=== PATIENT | female | born 1990 | race American Indian/Alaskan Native ===

== ENCOUNTER 2019-02-16 17:51 | Outpatient (CLI) | payer MEDICAID ==
[2019-02-16] MEDS ORDERED: LACTATED RINGERS 1,000 ML IV ONE (18:50)
[2019-02-16 22:37] VITALS: BP 125/89
== END 2019-02-16 22:00 | disposition home or self-care (01) ==
LOC: TRG 17:51
PROVIDERS: ATTEND Obstetrics & Gynecology
DX: O62.9 Abnormality of forces of labor, unspecified (principal); O26.893 Other specified pregnancy related conditions, third trimester; M54.9 Dorsalgia, unspecified; Z3A.38 38 weeks gestation of pregnancy
CPT/HCPCS: 96360; J7120

== ENCOUNTER 2019-03-03 06:56 | Inpatient (IN) | payer MEDICAID ==
[2019-03-03] MEDS ORDERED: LACTATED RINGERS 1,000 ML ONE (08:46)
[2019-03-03] MEDS ORDERED: PITOCin/NS 30 UNIT/500ML 30 UNITS/500 ML BAG IV SCH (09:00)
[2019-03-03] MEDS ORDERED: AMPICILLIN/NS 2 GM/100 ML 2 GM/100 ML BAG IV ONE (09:00)
[2019-03-03] MEDS ORDERED: BRETHINE IVP PRN (09:06)
[2019-03-03] MEDS ORDERED: XYLOCAINE 2% INFILTRATI ONE (09:06)
[2019-03-03] MEDS ORDERED: MINERAL OIL PO PRN (09:06)
[2019-03-03] MEDS ORDERED: SUBLIMAZE IV PRN (09:06)
[2019-03-03] MEDS ORDERED: ZOFRAN IV PRN ×3 (09:06→18:46)
[2019-03-03] MEDS ORDERED: STADOL IV PRN (09:06)
[2019-03-03] MEDS ORDERED: BRETHINE SUB-Q PRN (09:06)
[2019-03-03] MEDS: LACTATED RINGERS 1,000 ML IV SCH ×2 (09:15→12:24)
[2019-03-03] MEDS ORDERED: PITOCin/NS 20 UNIT/1000ML DRIP 20 UNITS/1,000 ML BAG IV SCH ×3 (10:00→19:00)
[2019-03-03 10:36] LABS: Basophils % (Auto) 0.8 % (0.0-1.8); Eosinophils # (Auto) 0.1 K/mm3 (0.0-0.4); Eosinophils % (Auto) 1.9 % (0.0-4.3); Hematocrit 28.2 % (30.3-42.9); Hemoglobin 9.5 gm/dl (10.1-14.3); Lymphocytes # (Auto) 1.1 K/mm3 (1.2-5.4); Lymphocytes % (Auto) 26.6 % (13.4-35.0); Mean Corpuscular HGB Conc 34 % (30-34); Mean Corpuscular Volume 77 fl (79-97); Monocytes # (Auto) 0.5 K/mm3 (0.0-0.8); Monocytes % (Auto) 12.2 % (0.0-7.3); Platelet Count 246 K/mm3 (140-440); Red Blood Count 3.67 M/mm3 (3.65-5.03)
--- NOTE | 2019-03-03 11:27 | History and Physical Report ---
History of Present Illness Date of examination: 03/03/19 Date of admission: 03/03/19 06:56 Chief complaint: Water broke History of present illness: The patient is a 28 yo at 41.0 wks EGA who presents with SROM (clear) and contractions since 0500 this morning. She has received care with [facility] since 20 weeks EGA. Her has been complicated by sickle cell trait, labor s/p BMZ x2 at 29 wks, and Chlamydia treated and cured. She is GBS negative. Past History Past Medical History: no pertinent history Past Surgical History: no surgical history Family/Genetic History: sickle cell/trait Social history: no significant social history - Obstetrical History Expected Date of Delivery: 02/24/19 Actual Gestation: 41 Week(s) 0 Day(s) : 5 Para: 2 Spontaneous Abortions: 2 Number of Living Children: 2 Medications and Allergies Allergies Allergy/AdvReac Type Severity Reaction Status Date / Time No Known Allergies Allergy Verified 12/12/18 10:38 Home Medications Medication Instructions Recorded Confirmed Last Taken Type Famotidine [Pepcid] 40 mg PO QHS #10 tablet 10/29/18 Unknown Rx Active Meds: Active Medications Butorphanol Tartrate (Stadol) 2 mg IV Q2H PRN PRN Reason: Pain , Severe (7-10) Ephedrine Sulfate (Ephedrine Sulfate) 10 mg IV Q2M PRN PRN Reason: Hypotension Fentanyl (Sublimaze) 100 mcg IV Q2H PRN PRN Reason: Labor Pain Oxytocin/Sodium Chloride (Pitocin/Ns 20 Unit/1000ml Drip) 20 units in 1,000 mls @ 125 mls/hr IV DIRECT GREG Oxytocin/Sodium Chloride (Pitocin/Ns 30 Unit/500ml) 30 units in 500 mls @ 4 mls/hr IV TITR GREG; Protocol Last Admin: 03/03/19 09:24 Dose: 4 ml/hr, 4 mls/hr Documented by: Lactated Ringer's (Lactated Ringers) 1,000 mls @ 125 mls/hr IV DIRECT GREG Last Admin: 03/03/19 09:15 Dose: 125 mls/hr Documented by: Mineral Oil (Mineral Oil) 30 ml PO QHS PRN PRN Reason: Constipation Ondansetron HCl (Zofran) 4 mg IV Q8H PRN PRN Reason: Nausea And Vomiting Terbutaline Sulfate (Brethine) 0.25 mg SUB-Q ONCE PRN PRN Reason: Hyperstimulation/Hypertonicity Terbutaline Sulfate (Brethine) 0.25 mg IVP ONCE PRN PRN Reason: Hyperstimulation/Hypertonicity Review of Systems All systems: negative Cardiovascular: no chest pain, no shortness of breath Neurological: no headaches - Vital Signs Vital signs: Vital Signs Pulse BP 75 136/88 03/03/19 07:24 03/03/19 07:24 Temp Pulse Resp BP Pulse Ox 75 136/88 100 03/03/19 11:19 03/03/19 07:24 03/03/19 11:19 - Physical Exam Cardiovascular: Regular rate, Normal S1, Normal S2, No murmurs Lungs: Positive: Clear to auscultation, Normal air movement Abdomen: Positive: normal appearance Genitourinary (Female): Positive: normal external genitalia, normal perenium Uterus: Positive: normal size, normal contour Extremities: Positive: normal - Obstetrical FHR: auscultation normal, category 1 Uterine Contraction Monitor Mode: External Uterine Contraction Pattern: Regular Uterine Tone Measurement Phase: Contraction Uterine Contraction Intensity: Strong/Firm Results Result Diagrams: 03/03/19 08:11 Abnormal lab results 03/03/19 Range/Units 08:11 WBC 4.3 L (4.5-11.0) K/mm3 Hgb 9.5 L (10.1-14.3) gm/dl Hct 28.2 L (30.3-42.9) % MCV 77 L (79-97) fl MCH 26 L (28-32) pg [place] % (Auto) 12.2 H (0.0-7.3) % Lymph # 1.1 L (1.2-5.4) K/mm3 All other labs normal. Assessment and Plan A: 28 yo at 41.0 wks EGA SROM x5 hours, initially clear contractions Sickle cell trait GBS negative P: Admit to L&D Pitocin augmentation Pain relief as requested Anticipate
[2019-03-03] MEDS ORDERED: MARCAINE 0.25% INFILTRATI ONE (12:50)
--- NOTE | 2019-03-03 13:13 | Anesthesia Consultation ---
Anesthesia Consult and Med Hx Date of service: 03/03/19 - Airway Anesthetic Teeth Evaluation: Good, Partials ROM Head & Neck: Adequate Mental/Hyoid Distance: Adequate Mallampati Class: Class II Intubation Access Assessment: Good - Pulmonary Exam CTA: Yes - Cardiac Exam Cardiac Exam: RRR - Pre-Operative Health Status ASA Pre-Surgery Classification: ASA2, Emergency Proposed Anesthetic Plan: Epidural - Pulmonary Hx Asthma: No COPD: No Hx Pneumonia: No - Cardiovascular System Hx Hypertension: No - Central Nervous System Hx Seizures: No Hx Psychiatric Problems: No - Endocrine Hx Renal Disease: No Hx End Stage Renal Disease: No Hx Hypothyroidism: No Hx Hyperthyroidism: No - Hematic Hx Anemia: No Hx Sickle Cell Disease: No (sickle cell trait) - Other Systems Hx Alcohol Use: No
[2019-03-03] MEDS ORDERED: NARCAN 2 MG/2 ML IV PRN (13:30)
[2019-03-03] MEDS ORDERED: fentaNYL-BUPIV 2 MCG/ML-0.125% 200 MCG/100 ML BAG EPIDURAL SCH (14:00)
[2019-03-03] MEDS ORDERED: NACL 0.9% 1000 ML 1,000 ML ONE (14:30)
[2019-03-03] MEDS ORDERED: PEPCID IV ONE ×2 (14:52→14:59)
[2019-03-03] MEDS ORDERED: BICITRA PO ONE (14:52)
[2019-03-03] MEDS ORDERED: REGLAN IV ONE (14:52)
--- NOTE | 2019-03-03 14:52 | Event Note ---
Date: 03/03/19 Repetitive decels despite amnioinfusion. Cervix 5 cm. Plan to proceed with primary section.
[2019-03-03] MEDS ORDERED: DEXMEDETOMIDINE IV ONE (14:56)
[2019-03-03] MEDS ORDERED: BICITRA ONE (14:59)
[2019-03-03] MEDS ORDERED: REGLAN ONE (14:59)
[2019-03-03] MEDS ORDERED: XYLOCAINE 2%/ EPI 1:200,000 INFILTRATI ONE (15:00)
[2019-03-03] MEDS ORDERED: LACTATED RINGERS 1,000 ML IV SCH (15:00)
--- NOTE | 2019-03-03 15:04 | Event Note ---
Date: 03/03/19 (1410) Decelerations to 50 bpm noted, toco inadequately registering uterine activity. Discussed risks and benefits of IUPC and amnioinfusion, pt elects for placement. IUPC placed in sterile fashion with no bloody flashback noted. Amnioinfusion initiated.
[2019-03-03] MEDS ORDERED: ZOFRAN ONE (15:16)
[2019-03-03] MEDS ORDERED: ANCEF/STERILE WATER 2 GM/20 ML IV ONE (15:20)
[2019-03-03] MEDS ORDERED: WATER FOR IRRIG STERILE IR ONE (15:24)
[2019-03-03] MEDS ORDERED: NACL 0.9% IR ONE (15:24)
[2019-03-03] MEDS ORDERED: METHERGINE IM ONE ×2 (15:42→17:24)
[2019-03-03] MEDS ORDERED: XYLOCAINE MPF 2% ONE (16:00)
[2019-03-03] MEDS ORDERED: TORADOL ONE (16:02)
--- NOTE | 2019-03-03 16:17 | Procedure Note ---
OB Delivery Note - Delivery Date of Delivery: 03/03/19 Surgeon: KERWIN RODRIGUEZ Estimated blood loss: 1000cc - Section Preop diagnosis: nonreassuring FHR tracing Postop diagnosis: same section procedure: section, primary low transverse Disposition: PACU Complications: uterine atony Narrative: Please see operative report. - A at 1 minute: 8 at 5 minutes: 9 Gender: Female (2913g (6lb 7oz) @ 1534 pm)
--- NOTE | 2019-03-03 16:24 | Operative Report ---
Operative Report Operative Report: Date of procedure: March 03, 2019 Preoperative diagnosis: 1) IUP at 41w0d 2) Nonreassuring status remote from delivery 3) SROM Postoperative diagnosis: Same 4) Uterine Atony Procedure:Primary low transverse section Surgeon: Viv Camejo M.D. Anesthesia: Regional Findings: 1) Viable female , Apgars 8 and 9, weight 2913g, (6 lb 7 oz) in cephalic presentation. Tight nuchal cord x 1 2) Normal-appearing uterus ovaries and tubes Estimated blood loss: 1000 mL IV fluids: 700 mL Urine output: 100mL, clear at the end of the procedure Drains: [place] to gravity Specimens: None. Complications: None. Counts correct x 3 Medications: Methergine 0.2 mg IM Disposition: Stable to PACU Indication for procedure: Pt is a 28 year old -[place] female at 41w0d who was initially admitted with rupture of membranes progressed to 5 cm then began to have repetitive variable decels to the 50s with every contraction despite amnioinfusion. The decision was made to proceed with delivery. Operation in detail: After the risks, benefits, alternatives and complications were explained to the patient she gave informed consent for the procedure. She was subsequently taken to the operating room where regional anesthesia was noted to be adequate. She was subsequently placed in the dorsal supine position with leftward tilt and prepped and draped in a normal sterile fashion. heart tones were noted to be in the 125s prior to incision. A timeout was performed. A Pfannenstiel skin incision was made with the knife and carried down to the layer of the fascia with the Bovie. The fascia was incised in the midline and the fascial incision was extended bilaterally with the Bovie. Attention was then turned to the superior aspect of the incision which was grasped with two Kochers, tented up, and dissected off the rectus muscles. Attention was then turned to the inferior aspect of the incision which was grasped with two Kochers, tented up and dissected off the rectus muscles. The rectus muscles were then in the midline. The peritoneum was then entered bluntly. The peritoneal incision was extended with good visualization of the bladder. The peritoneal incision was then stretched. An Nilo self-retaining retractor was placed for visualization. The bladder blade was placed. The vesicouterine peritoneum was grasped with smooth pickups and incised with Metzenbaum scissors. Metzenbaum scissors were used to extend the incision bilaterally. The bladder flap was then created digitally and the bladder blade was replaced. A transverse incision was made in the lower uterine segment with a knife and extended bilaterally with the bandage scissors. The head was delivered without difficulty followed by shoulders and body. was bulb suctioned at delivery. The cord was clamped and cut and the was handed to NICU staff in attendance. The placenta was then delivered manually. The uterus was then exteriorized and cleared of all clots and debris. The uterus was noted to be atonic so Methergine 0.2 mg IM was administered with improvement in uterine tone. There was also a bleeding vessel in the left lower uterine segment that required multiple [id number] of 2-0 Vicryl to achieve hemostasis. The hysterotomy was then reapproximated with 0 Vicryl in a running locked fashion. A figure of eight of the same suture was used to obtain hemostasis. The hysterotomy was inspected and hemostasis was noted. The Nilo self-retaining retractor was removed. The gutters were irrigated and cleared of all clots and debris. The hysterotomy was again inspected and noted to be hemostatic. Surgicel was placed over the hysterotomy. Intercede was placed over the anterior surface of the uterus. The peritoneum was reapproximated with 2-0 Vicryl in a running fashion incorporating the rectus muscles. The fascia was reapproximated with 0 Vicryl in a running fashion. The skin was reapproximated with 4-0 Vicryl in a running fashion. The incision was then covered with steri strips and a pressure dressing. The procedure was then ended. The patient tolerated the procedure well and was taken to the PACU in stable condition. All instrument, lap, and needle counts were correct 3.
[2019-03-03] MEDS ORDERED: PHENERGAN PO PRN (16:57)
[2019-03-03] MEDS ORDERED: DILAUDID IV PRN ×2 (16:57)
[2019-03-03] MEDS ORDERED: PHENERGAN PR PRN (16:57)
[2019-03-03] MEDS ORDERED: NARCAN 0.4 MG/1 ML IV PRN ×2 (16:57→18:46)
--- NOTE | 2019-03-03 16:57 | Anesthesia Day of Surgery ---
Anesthesia Day of Surgery - Day of Surgery Patient Examined: Yes Patient H&P Reviewed: Yes Patient is NPO: Yes
--- NOTE | 2019-03-03 16:59 | Post Anesthesia Evaluation ---
- Post Anesthesia Evaluation Patient Participated: Yes Airway Patent: Yes Stable Respiratory Function: Yes Nausea/Vomiting: No Temp > 96.8F: Yes Pain Manageable: Yes Adequeate Hydration: Yes Anesthesia Complications: No Block Receding Appropriately: Yes Patient on Ventilator: No
[2019-03-03] MEDS ORDERED: SODIUM CHLORIDE FLUSH SYRINGE 10 ML IV NR ×2 (17:00→18:46)
[2019-03-03] MEDS ORDERED: TUCKS PAD TP PRN (18:46)
[2019-03-03] MEDS ORDERED: MORPHINE IV PRN ×2 (18:46)
[2019-03-03] MEDS ORDERED: LANSINOH TP PRN (18:46)
[2019-03-03] MEDS ORDERED: MILK OF MAGNESIA PO PRN (18:46)
[2019-03-03] MEDS: TORADOL IV PRN (21:27)
[2019-03-03] MEDS: D5LR 1,000 ML IV SCH (23:06)
[2019-03-03] MEDS: PERCOCET 5/325 PO PRN (23:06)
[2019-03-03] MEDS: ANCEF/NS 1 GM/50 ML 1 GM/50 ML BAG IV SCH (23:07)
[2019-03-04] MEDS: TORADOL IV PRN (03:14)
[2019-03-04] MEDS: PERCOCET 5/325 PO PRN ×3 (03:20→17:25)
[2019-03-04] MEDS: D5LR 1,000 ML IV SCH (05:11)
[2019-03-04 05:57] LABS: Hemoglobin 6.7 gm/dl (10.1-14.3)
[2019-03-04] MEDS ORDERED: BOOSTRIX IM ONE (06:00)
[2019-03-04] MEDS ORDERED: M-M-R II VACCINE SUB-Q ONE (06:00)
[2019-03-04 06:05] LABS: Hematocrit 20.2 % (30.3-42.9)
[2019-03-04] MEDS: ANCEF/NS 1 GM/50 ML 1 GM/50 ML BAG IV SCH (09:26)
[2019-03-04] MEDS: IBUPROFEN PO PRN ×2 (09:52→17:25)
[2019-03-04] MEDS: MYLICON PO PRN ×2 (09:53→13:15)
[2019-03-04] MEDS ORDERED: FEOSOL PO SCH ×2 (10:00)
--- NOTE | 2019-03-04 10:02 | Progress Note ---
Assessment and Plan A: POD1 s/p primary LTCS Vital signs stable Severe anemia without symptoms No bowel sounds P: Initiate stimulant laxative Iron supplementation TID Order abdominal binder Void JENNA Anticipate d/c to home on POD3 Subjective - Subjective Date of service: 03/04/19 Principal diagnosis: section Interval history: POD1 s/p primary LTCS for NRFHT. Patient reports: appetite normal, pain well controlled, no voiding normally (has not been up to void yet), no flatus [place]: doing well, bottle feeding Objective - Vital Signs Latest vital signs: Vital Signs Temp Pulse Resp BP BP Pulse Ox 03/04/19 07:35 97.7 F 81 20 112/63 100 03/04/19 03:54 98.3 F 90 20 110/72 99 03/03/19 23:46 97.9 F 86 20 113/72 100 03/03/19 17:45 97.5 F L 62 18 122/82 100 03/03/19 17:25 97.5 F L 77 18 114/66 03/03/19 17:10 57 L 12 120/73 100 03/03/19 16:55 56 L 14 112/68 100 03/03/19 16:40 59 L 14 115/64 98 03/03/19 16:35 61 15 114/65 98 03/03/19 16:30 61 18 111/63 99 03/03/19 16:25 97.5 F L 67 16 98/59 100 03/03/19 14:54 96 H 84 03/03/19 14:53 91 H 71 L 03/03/19 14:49 93 H 81 L 03/03/19 14:47 88 87 03/03/19 14:44 82 100 03/03/19 14:42 89 92 03/03/19 14:39 71 100 03/03/19 14:34 78 100 03/03/19 14:29 78 100 03/03/19 14:28 79 92 03/03/19 14:23 77 93 03/03/19 14:22 89 85 03/03/19 14:18 82 100 03/03/19 14:13 78 100 03/03/19 14:08 82 100 03/03/19 14:03 83 100 03/03/19 13:58 76 100 03/03/19 13:53 111 H 100 03/03/19 13:48 100 H 99 03/03/19 13:43 79 100 03/03/19 13:38 81 93 03/03/19 13:37 79 90 03/03/19 13:25 92 H 100 03/03/19 13:20 78 121/76 100 03/03/19 13:15 83 100 03/03/19 13:10 87 100 03/03/19 13:05 79 100 03/03/19 13:04 78 146/72 03/03/19 13:01 85 127/90 03/03/19 13:00 92 H 99 03/03/19 12:59 82 139/84 03/03/19 12:57 91 H 130/88 03/03/19 12:55 90 100 03/03/19 12:50 72 100 03/03/19 12:47 74 137/81 03/03/19 12:45 96 H 100 03/03/19 12:40 69 100 03/03/19 12:14 63 99 03/03/19 12:09 73 100 03/03/19 12:04 60 100 03/03/19 11:59 67 100 03/03/19 11:54 73 100 03/03/19 11:48 96 H 100 03/03/19 11:22 77 94 03/03/19 11:19 75 100 03/03/19 11:14 79 100 03/03/19 11:12 77 80 L 03/03/19 11:09 84 100 03/03/19 11:04 77 100 03/03/19 10:59 89 100 03/03/19 10:58 90 90 03/03/19 10:54 77 100 03/03/19 10:49 76 100 03/03/19 10:48 83 0 L 03/03/19 10:37 77 100 03/03/19 10:32 74 100 03/03/19 10:27 82 93 Intake and Output 03/03/19 03/04/19 03/04/19 23:59 07:59 15:59 Intake Total 1050 1240.417 Output Total 200 1200 Balance 850 40.417 Intake: IV 1050 760.417 ANCEF/NS 1 GM/50 ML 1 gm 50 In 50 ml @ 100 mls/hr IV Q8H [facility] Rx#:[id number] D5lr 1,000 ml @ 125 mls/ 760.417 hr IV DIRECT GREG Rx#: [id number] Oral 480 Output: Urine 200 1200 Indwelling Catheter 1200 Other: Total, Intake Amount 240 Total, Output Amount 600 - Exam Cardiovascular: Present: Regular rate, Normal S1, Normal S2, No murmurs Lungs: Present: Clear to auscultation, Normal air movement Abdomen: Present: normal appearance, tenderness, guarding, abnormal bowel sounds (absent) Uterus: Present: normal, firm, fundal height above umbilicus (displaced by full bladder) Extremities: Present: normal Incision: Present: normal, dry, intact - Labs Labs: Abnormal lab results 03/03/19 03/04/19 Range/Units 08:11 05:28 WBC 4.3 L (4.5-11.0) K/mm3 Hgb 9.5 L 6.7 L (10.1-14.3) gm/dl Hct 28.2 L 20.2 L D (30.3-42.9) % MCV 77 L (79-97) fl MCH 26 L (28-32) pg [place] % (Auto) 12.2 H (0.0-7.3) % Lymph # 1.1 L (1.2-5.4) K/mm3
[2019-03-04] MEDS: FEOSOL PO SCH ×2 (13:15→20:46)
[2019-03-05] MEDS: PERCOCET 5/325 PO PRN ×2 (01:03→21:23)
[2019-03-05] MEDS: IBUPROFEN PO PRN ×2 (01:03→21:24)
--- NOTE | 2019-03-05 08:13 | Progress Note ---
Assessment and Plan A/P POD2 s/p primary csec secere acute anemia on iron asymptomatic routine post op orders d/c home tomorrow Subjective - Subjective Date of service: 03/05/19 Principal diagnosis: section Patient reports: appetite normal, voiding normally, pain well controlled, flatus, ambulating normally : doing well Objective - Vital Signs Latest vital signs: Vital Signs Temp Pulse Resp BP BP Pulse Ox 03/05/19 07:21 98.2 F 94 H 18 113/63 03/05/19 06:57 89 03/05/19 00:48 98.8 F 117 H 18 118/73 100 03/04/19 16:22 98.0 F 91 H 20 119/77 100 03/04/19 11:30 97.5 F L 79 20 116/66 100 Intake and Output 03/04/19 03/05/19 03/05/19 23:59 07:59 15:59 Intake Total 120 960 Output Total 600 Balance -480 960 Intake: Oral 120 600 Intake, Free Water 360 Output: Urine 600 Void 600 Other: Total, Intake Amount 120 480 Total, Output Amount 600 # Voids Void 1 - Exam Breasts: Present: normal Cardiovascular: Present: Regular rate, Normal S1 Lungs: Present: Clear to auscultation, Normal air movement Abdomen: Present: normal appearance, soft, normal bowel sounds. Absent: distention, tenderness, guarding Vulva: both: normal Uterus: Present: normal, firm, fundal height below umbilicus. Absent: bogginess Extremities: Present: normal Deep Tendon Reflex Grade: Normal +2 Incision: Present: normal
--- NOTE | 2019-03-05 08:17 | Discharge Summary ---
Providers - Providers Date of Admission: 03/03/19 06:56 Date of discharge: 03/06/19 Attending physician: KERWIN RODRIGUEZ Primary care physician: DARIEN CORTES MD Hospitalization Reason for admission: active labor, IUP at term Procedure: section Episiotomy: none Laceration: none Incision: normal, dry, intact Other procedures: none complications: uterine atony Discharge diagnosis: IUP at term delivered baby: female Hospital course: Patient had a primary csec secondary to NRFHT. She did well postop. Acute severe anemia on iron. Discharged home with f/u in 2 weeks Condition at discharge: Good Disposition: DC-01 TO HOME OR SELFCARE Plan - Discharge Medications Prescriptions: Docusate Sodium [Colace] 100 mg PO BID PRN #60 capsule PRN Reason: Constipation Ferrous Sulfate [Feosol 325 MG tab] 325 mg PO TID #90 tablet Ibuprofen [Motrin] 800 mg PO Q8HR PRN #30 tablet PRN Reason: Pain, Moderate (4-6) oxyCODONE /ACETAMINOPHEN [Percocet 5/325] 1 tab PO Q6HR PRN #40 tablet PRN Reason: Pain - Provider Discharge Summary Activity: routine, no sex for 6 weeks, no strenuous exercise Diet: routine Instructions: routine Additional instructions: [] Smoking cessation referral if applicable(refer to patient education folder for contact #) [] Refer to [facility] Booklet Call your doctor immediately for: * Fever > 100.5 * Heavy vaginal bleeding ( >1 pad per hour) * Severe persistent headache * Shortness of breath * Reddened, hot, painful area to leg or breast * Drainage or odor from incision. * Keep incision clean and dry at all times and follow doctor's instructions regarding bathing/showering - Follow up plan Follow up: DARIEN CORTES MD [Primary Care Provider] - 14 Days
[2019-03-05] MEDS: FEOSOL PO SCH (21:24)
[2019-03-06] MEDS: IBUPROFEN PO PRN (09:21)
[2019-03-06] MEDS: PERCOCET 5/325 PO PRN (09:22)
[2019-03-06] MEDS: FEOSOL PO SCH (09:25)
[2019-03-06 14:24] VITALS: BP 140/79
== END 2019-03-06 15:10 | disposition home or self-care (01) | DRG 765 ==
LOC: LD 06:56 → OB 18:01
PROVIDERS: ADMIT Obstetrics & Gynecology; ATTEND Obstetrics & Gynecology
PROC: 10D00Z1 Extraction of Products of Conception, Low, Open Approach (ICD-10-PCS; principal; 2019-03-03)
PROC: 3E0E3GC Introduction of Other Therapeutic Substance into Products of Conception, Percutaneous Approach (ICD-10-PCS; 2019-03-03)
PROC: 10H07YZ Insertion of Other Device into Products of Conception, Via Natural or Artificial Opening (ICD-10-PCS; 2019-03-03)
PROC: 3E0234Z Introduction of Serum, Toxoid and Vaccine into Muscle, Percutaneous Approach (ICD-10-PCS; 2019-03-04)
DX: O76 Abnormality in fetal heart rate and rhythm complicating labor and delivery (principal); D62 Acute posthemorrhagic anemia; O99.02 Anemia complicating childbirth; O62.2 Other uterine inertia; O69.81X0 Labor and delivery complicated by cord around neck, without compression, not applicable or unspecified; D57.1 Sickle-cell disease without crisis; Z3A.41 41 weeks gestation of pregnancy; Z37.0 Single live birth; Z23 Encounter for immunization
CPT/HCPCS: 36415; 85014; 85018; 85025; 86592; 86850; 86900; 86901; G0378; C1765; J0290; J0595; J0690; J1885; J2210; J2270; J2405; J2590; J2765; J3010; J3490; J7030; J7120; J7121